=== PATIENT | male | born 1945 | race Caucasian/White ===

== ENCOUNTER → 2018-05-01 | Outpatient (CLI) | payer OTHER ==
[~2018-05-01] MED LIST: ALTACE 1.25 M1.25 M1 PO; ALTACE2.5 MG PO; AREDS 2; ASPIRIN325 PO; ASPIRIN81 M2 PO; B-COMPLEX PLUS1 EACH PO; CEFTIN 250 MG250 MG PO; CRESTOR10 MG PO; CRESTOR20 MG PO; FISH OIL 1,0001 EAC5 PO; FLEXERIL PO; NORCO 5-325 TA1 EACH PO; PREVACID30 M2 PO; RAMIPRIL PO; VITAMIN D1000 UNI1 PO; VITAMIN D400 UNI1; WELLBUTRIN SR150 M1 PO
== END ==
LOC: RAD 09:06
DX: R04.2 Hemoptysis (principal)